=== PATIENT | female | born 1945 | race Caucasian/White ===

== ENCOUNTER 2024-04-21 19:56 | Inpatient (IN) ==
[2024-04-21] MEDS: IPRATROPIUM/ALBUTEROL 3 ML AMPUL.NEB NEB ONE (20:35)
[2024-04-21] MEDS: 0.9 % SODIUM CHLORIDE 1,000 ML IV ONE (21:00)
[2024-04-21 21:01] LABS: Basophils # (Auto) 0.07 K/mcL (0.00-0.30); Basophils % (Auto) 0.7 % (0.0-2.0); Eosinophils # (Auto) 0.26 K/mcL (0.00-0.70); Eosinophils % (Auto) 2.6 % (0.0-7.0); Hematocrit 37.1 % (34.1-44.9); Hemoglobin 11.9 g/dL (11.2-15.7); Lymphocytes # (Auto) 2.72 K/mcL (1.50-4.80); Lymphocytes % (Auto) 27.4 % (15.5-49.0); Mean Cell Volume 88.3 fL (80.0-100.0); Mean Corpuscular HGB Conc 32.1 g/dL (31.0-36.0); Mean Platelet Volume 11.6 fL (8.8-12.5); Neutrophils % (Auto) 63.2 % (38.0-78.0); Platelet Count 243 K/mcL (140-440); Red Cell Distribution Width 13.6 % (11.5-14.5); WBC 9.9 K/mcL (4.5-11.0)
[2024-04-21 21:20] LABS: ALT/SGPT 8 U/L (<40); AST/SGOT 17 U/L (<32); Albumin 4.2 gm/dL (3.2-5.2); Albumin/Globulin Ratio 1.4 (1.0-2.3); Alkaline Phosphatase 115 U/L (39-117); Bilirubin,Total 0.3 mg/dL (0.1-1.0); Blood Urea Nitrogen 45 mg/dL (8-23); Calcium 9.9 mg/dL (8.6-10.4); Carbon Dioxide 21 mmol/L (22-30); Chloride 89 mmol/L (96-108); Globulin 3.1 gm/dL (2.2-3.7); Glomerular Filtration Rate 36; Glucose 628 mg/dL (70-105)
[2024-04-21] MEDS: metFORMIN 500 MG TAB.XL.24H PO ONE (22:30)
[2024-04-21] MEDS: glipiZIDE 5 MG TAB.XL.24H PO ONE (22:30)
[2024-04-21 23:48] LABS: Appearance,Urine Cloudy (Clear); Bacteria,Urine Many /hpf (0); Bilirubin,Urine Negative (Negative); Color,Urine Yellow; Culture Indicated,Urine Yes; Glucose,Urine (UA) 500 mg/dL (Negative); Ketones,Urine 40 mg/dL (Negative); Leukocyte Esterase,Urine Large /uL (Negative); Nitrate,Urine Positive (Negative); Protein,Urine 30 mg/dL (Negative); Urine Blood Moderate ery/mcL (Negative); Urine RBC 0 /hpf (0-3); Urine Squamous Epithelial Cell 0 /hpf (0-4); Urine WBC > 182 /hpf (0-4); Urobilinogen,Urine Normal
[2024-04-22] MEDS: INSULIN REGULAR, HUMAN 1 UNIT/0.01 ML UNIT SQ ONE ×2 (01:08→04:35)
[2024-04-22] MEDS ORDERED: DEXTROSE 31 GM ORAL.SUSP PO PRN ×2 (01:18→04:51)
[2024-04-22] MEDS ORDERED: DEXTROSE 50% 50 ML VIAL IV PRN ×2 (01:18→04:51)
[2024-04-22] MEDS: cefTRIAXone 2 GM in DEXTROSE 5% IN WATER 50 ML IV ONE (01:32)
[2024-04-22 02:04] LABS: C-Reactive Protein 0.64 mg/dL (0.03-0.80)
[2024-04-22] MEDS: LACTATED RINGERS 1,000 ML IV SCH (02:26)
[2024-04-22] MEDS ORDERED: ONDANSETRON 4 MG/2 ML VIAL IV PRN (07:52)
[2024-04-22] MEDS ORDERED: MAGNESIUM HYDROXIDE 30 ML ORAL.SUSP PO PRN (07:52)
[2024-04-22] MEDS ORDERED: BISACODYL 10 MG SUPP.RECT PR PRN (07:52)
[2024-04-22] MEDS ORDERED: SENNOSIDES 1 TABLET PO PRN (07:52)
[2024-04-22] MEDS: INSULIN LISPRO 1 UNIT/0.01 ML UNIT SQ SCH ×2 (08:13→08:55)
[2024-04-22 08:22] LABS: Basophils # (Auto) 0.08 K/mcL (0.00-0.30); Basophils % (Auto) 0.8 % (0.0-2.0); Eosinophils # (Auto) 0.28 K/mcL (0.00-0.70); Eosinophils % (Auto) 2.7 % (0.0-7.0); Hematocrit 37.4 % (34.1-44.9); Lymphocytes # (Auto) 2.71 K/mcL (1.50-4.80); Lymphocytes % (Auto) 25.9 % (15.5-49.0); Mean Cell Volume 87.8 fL (80.0-100.0); Mean Corpuscular HGB Conc 32.1 g/dL (31.0-36.0); Mean Platelet Volume 11.1 fL (8.8-12.5); Monocytes # (Auto) 0.71 K/mcL (0.10-0.90); Monocytes % (Auto) 6.8 % (1.0-12.0); Neutrophils % (Auto) 63.6 % (38.0-78.0); Platelet Count 265 K/mcL (140-440); RBC 4.26 M/mcL (3.59-5.38); Red Cell Distribution Width 13.7 % (11.5-14.5); WBC 10.5 K/mcL (4.5-11.0)
[2024-04-22 08:52] LABS: ALT/SGPT 13 U/L (<40); AST/SGOT 17 U/L (<32); Albumin 4.3 gm/dL (3.2-5.2); Albumin/Globulin Ratio 1.4 (1.0-2.3); Alkaline Phosphatase 113 U/L (39-117); Bilirubin,Total 0.3 mg/dL (0.1-1.0); Blood Urea Nitrogen 38 mg/dL (8-23); Calcium 9.9 mg/dL (8.6-10.4); Carbon Dioxide 25 mmol/L (22-30); Chloride 98 mmol/L (96-108); Globulin 3.1 gm/dL (2.2-3.7); Glomerular Filtration Rate 48; Glucose 327 mg/dL (70-105)
[2024-04-22] MEDS: HEPARIN 5,000 UNIT/ML VIAL SQ SCH (09:30)
[2024-04-22] MEDS ORDERED: ALBUTEROL SULFATE 60 PUFF INHALER INH PRN (10:35)
[2024-04-22] MEDS: INSULIN GLARGINE, HUMAN 1 UNIT/0.01 ML SQ ONE (10:56)
[2024-04-22] MEDS: PRAMIPEXOLE 0.25 MG TABLET PO ONE (10:57)
[2024-04-22] MEDS: 0.9 % SODIUM CHLORIDE 10 ML SYRINGE IV SCH (13:59)
[2024-04-22] MEDS: PRAMIPEXOLE 0.25 MG TABLET PO SCH (19:13)
[2024-04-22] MEDS: traZODone HCL 50 MG TABLET PO PRN (22:26)
[2024-04-23 06:44] LABS: Basophils # (Auto) 0.05 K/mcL (0.00-0.30); Basophils % (Auto) 0.7 % (0.0-2.0); Eosinophils # (Auto) 0.28 K/mcL (0.00-0.70); Hematocrit 34.3 % (34.1-44.9); Hemoglobin 10.7 g/dL (11.2-15.7); Lymphocytes # (Auto) 2.26 K/mcL (1.50-4.80); Lymphocytes % (Auto) 32.5 % (15.5-49.0); Mean Cell Volume 88.9 fL (80.0-100.0); Mean Corpuscular HGB Conc 31.2 g/dL (31.0-36.0); Mean Platelet Volume 11.6 fL (8.8-12.5); Monocytes # (Auto) 0.54 K/mcL (0.10-0.90); Monocytes % (Auto) 7.8 % (1.0-12.0); Neutrophils % (Auto) 54.9 % (38.0-78.0); Platelet Count 195 K/mcL (140-440); RBC 3.86 M/mcL (3.59-5.38)
[2024-04-23 06:54] LABS: ALT/SGPT 74 U/L (<40); AST/SGOT 121 U/L (<32); Albumin 3.7 gm/dL (3.2-5.2); Albumin/Globulin Ratio 1.5 (1.0-2.3); Alkaline Phosphatase 128 U/L (39-117); Bilirubin,Total 0.3 mg/dL (0.1-1.0); Blood Urea Nitrogen 25 mg/dL (8-23); Calcium 9.5 mg/dL (8.6-10.4); Carbon Dioxide 26 mmol/L (22-30); Chloride 100 mmol/L (96-108); Globulin 2.5 gm/dL (2.2-3.7); Glomerular Filtration Rate 70; Glucose 301 mg/dL (70-105)
[2024-04-23] MEDS: PANTOPRAZOLE 40 MG TABLET PO SCH (07:47)
[2024-04-23] MEDS: ATORVASTATIN 10 MG TABLET PO SCH (08:51)
[2024-04-23] MEDS: INSULIN GLARGINE, HUMAN 1 UNIT/0.01 ML SQ ONE (13:30)
[2024-04-23] MEDS: LISINOPRIL 20 MG TABLET PO SCH (20:23)
[2024-04-24] MEDS: ACETAMINOPHEN 325 MG TABLET PO PRN (03:16)
[2024-04-24 06:54] LABS: Basophils # (Auto) 0.06 K/mcL (0.00-0.30); Basophils % (Auto) 0.9 % (0.0-2.0); Eosinophils # (Auto) 0.27 K/mcL (0.00-0.70); Eosinophils % (Auto) 4.2 % (0.0-7.0); Hematocrit 35.2 % (34.1-44.9); Hemoglobin 10.9 g/dL (11.2-15.7); Lymphocytes # (Auto) 2.45 K/mcL (1.50-4.80); Lymphocytes % (Auto) 38.2 % (15.5-49.0); Monocytes # (Auto) 0.41 K/mcL (0.10-0.90); Monocytes % (Auto) 6.4 % (1.0-12.0); Neutrophils % (Auto) 50.1 % (38.0-78.0); Platelet Count 196 K/mcL (140-440); RBC 3.91 M/mcL (3.59-5.38); Red Cell Distribution Width 13.9 % (11.5-14.5); WBC 6.4 K/mcL (4.5-11.0)
[2024-04-24 07:34] LABS: ALT/SGPT 227 U/L (<40); AST/SGOT 326 U/L (<32); Albumin 3.6 gm/dL (3.2-5.2); Albumin/Globulin Ratio 1.3 (1.0-2.3); Alkaline Phosphatase 223 U/L (39-117); Bilirubin,Total 0.7 mg/dL (0.1-1.0); Blood Urea Nitrogen 13 mg/dL (8-23); Calcium 9.9 mg/dL (8.6-10.4); Carbon Dioxide 25 mmol/L (22-30); Chloride 99 mmol/L (96-108); Globulin 2.7 gm/dL (2.2-3.7); Glomerular Filtration Rate 70; Glucose 329 mg/dL (70-105)
[2024-04-24] MEDS: cefTRIAXone 2 GM in DEXTROSE 5% IN WATER 50 ML IV ONE (11:17)
[2024-04-24] MEDS: INSULIN LISPRO 1 UNIT/0.01 ML UNIT SQ SCH ×2 (12:07→18:29)
[2024-04-24 14:47] LABS: Estimated Average Glucose(eAG) 332 mg/dL; Hemoglobin A1C 13.2 % Hgb (4.0-6.0)
[2024-04-24] MEDS: traMADol 50 MG TABLET PO ONE (23:58)
[2024-04-25] MEDS: traMADol 50 MG TABLET PO ONE (00:03)
[2024-04-25 07:38] LABS: Basophils # (Auto) 0.05 K/mcL (0.00-0.30); Basophils % (Auto) 1.1 % (0.0-2.0); Eosinophils # (Auto) 0.31 K/mcL (0.00-0.70); Hematocrit 34.3 % (34.1-44.9); Hemoglobin 10.7 g/dL (11.2-15.7); Lymphocytes # (Auto) 2.06 K/mcL (1.50-4.80); Lymphocytes % (Auto) 46.6 % (15.5-49.0); Mean Cell Volume 89.8 fL (80.0-100.0); Mean Corpuscular HGB Conc 31.2 g/dL (31.0-36.0); Mean Platelet Volume 12.5 fL (8.8-12.5); Monocytes # (Auto) 0.31 K/mcL (0.10-0.90); Neutrophils % (Auto) 38.1 % (38.0-78.0); Platelet Count 153 K/mcL (140-440); RBC 3.82 M/mcL (3.59-5.38); WBC 4.4 K/mcL (4.5-11.0)
[2024-04-25 08:29] LABS: ALT/SGPT 605 U/L (<40); AST/SGOT 1123 U/L (<32); Albumin 3.5 gm/dL (3.2-5.2); Albumin/Globulin Ratio 1.4 (1.0-2.3); Alkaline Phosphatase 362 U/L (39-117); Bilirubin,Total 1.7 mg/dL (0.1-1.0); Blood Urea Nitrogen 10 mg/dL (8-23); Calcium 9.8 mg/dL (8.6-10.4); Carbon Dioxide 29 mmol/L (22-30); Chloride 100 mmol/L (96-108); Globulin 2.5 gm/dL (2.2-3.7); Glomerular Filtration Rate 70; Glucose 260 mg/dL (70-105)
[2024-04-25] MEDS ORDERED: INSULIN GLARGINE, HUMAN 1 UNIT/0.01 ML SQ SCH (09:00)
[2024-04-25] MEDS: cefTRIAXone 1 GM VIAL IV SCH (09:53)
[2024-04-25] MEDS: INSULIN GLARGINE, HUMAN 1 UNIT/0.01 ML SQ SCH (09:53)
[2024-04-25] MEDS: INSULIN LISPRO 1 UNIT/0.01 ML UNIT SQ SCH (11:36)
[2024-04-25] MEDS ORDERED: CEFDINIR 300 MG CAPSULE PO SCH (21:00)
== END 2024-04-25 13:05 | DRG 690 ==
LOC: ED 19:56 → MEDSUR 04-22 04:40
PROVIDERS: ADMIT Student in an Organized Health Care Education/Training Program; ATTEND Student in an Organized Health Care Education/Training Program